=== PATIENT | male | born 1995 | race Caucasian/White ===

== ENCOUNTER 2016-04-19 23:31 | Emergency (ER) | payer OTHER ==
[~2016-04-19] VITALS: Wt 65.0 kg
[~2016-04-19 23:31] MED LIST: LORA10CA PO; MULT-552 PO; PSEU120T51 PO
--- NOTE | 2016-04-20 01:50 | RADRPT ---
PROCEDURE: CHEST - 1 VIEW CLINICAL INDICATION: 20-year-old male with chest pain. TECHNIQUE: A single frontal PA view of the chest was performed. The images were reviewed on a PAC S workstation. COMPARISON: Chest x-ray July 07, 2014. FINDINGS: The cardiomediastinal silhouette has a normal appearance. There is no evidence for an infiltrate. T he pulmonary vascularity is within normal limits. There is no evidence for pneumothorax or pneumomed iastinum. The osseous structures are intact. IMPRESSION: No evidence for active cardiopulmonary disease. .Philip Muller MD, Date Time Electronically viewed and signed by .Philip Muller MD, on 04/20/2016 01:50 .M/
--- NOTE | 2016-04-20 01:52 | ERD ---
ER Documentation Chief Complaint Date/Time DATE: 04/20/16 TIME: 01:47 Chief Complaint c/p with inhalation x's 30 minutes HPI This is a 20-year-old male who presents to the emergency department today complaining of left-sided chest pain that started earlier this evening. Patient states that he was eating when his phone rang and he went to answer the phone and he choked and spit his food out. Patient states that he drank water afterwards and started feeling some left-sided chest pain. States the pain is worse with deep inspiration. States he has not taken any medication for the pain. States he smokes cigarettes. Denies any fevers or chills. Denies any cough. ROS All systems reviewed and are negative except as per history of present illness. Medications Home Meds Active Scripts Famotidine* (Pepcid*) 20 Mg Tablet, 20 MG PO BID for 10 Days, TAB Prov:RADHA AVERY PA-C 04/20/16 Acetaminophen* (Tylophen*) 500 Mg Capsule, 1 CAP PO Q6H Y for PAIN AND OR ELEVATED TEMP, #30 CAP Prov:RADHA AVERY PA-C 04/20/16 Naproxen* (Naprosyn*) 500 Mg Tablet, 500 MG PO BID Y for PAIN AND/OR INFLAMMATION, #30 TAB Prov:RADHA AVERY PA-C 04/20/16 Pseudoephedrine Hcl (Sudafed 12 Hour) 120 Mg Tablet.sa, 120 MG PO BID, #6 Prov:FAHEEM MURPHY PA-C 09/29/15 Loratadine* (Claritin*) 10 Mg Capsule, 10 MG PO DAILY, #7 CAP Prov:FHAEEM MURPHY PA-C 09/29/15 Reported Medications Multivitamins* (Once Daily*) 1 Tab Tablet, 1 TAB PO DAILY, TAB 02/23/14 Allergies Allergies: Coded Allergies: No Known Drug Allergies (Verified Allergy, Mild, 07/06/14) PMhx/Soc Medical and Surgical Hx: pt denies Medical Hx, pt denies Surgical Hx History of Surgery: No Anesthesia Reaction: No Hx Neurological Disorder: No Hx Respiratory Disorders: No Hx Cardiac Disorders: No Hx Psychiatric Problems: No Hx Miscellaneous Medical Probl: No Hx Alcohol Use: No Hx Substance Use: Yes (METH, MARIJUANA) Hx Tobacco Use: No Smoking Status: Current some day smoker Physical Exam Vitals Vital Signs Date Time Temp Pulse Resp B/P Pulse Ox O2 Delivery O2 Flow Rate FiO2 04/19/16 23:36 98.6 102 18 124/74 98 Physical Exam Const: No acute distress Head: Atraumatic Eyes: Normal Conjunctiva ENT: Normal External Ears, Nose and Mouth. Neck: Full range of motion..~ No meningismus. Resp: Clear to auscultation bilaterally. No absent breath sounds. No wheezing. Tenderness palpation left side of chest wall. Cardio: Regular rate and rhythm, no murmurs Abd: Soft, non tender, non distended. Normal bowel sounds Skin: No petechiae or rashes Neur: Awake and alert Psych: Normal Mood and Affect Results 24 hrs Current Medications Medications (Trade) Dose Ordered Sig/Vandana Route PRN Reason Start Time Stop Time Status Last Admin Dose Admin Ibuprofen (Motrin) 800 mg ONCE ONCE PO 04/20/16 02:00 04/20/16 02:01 04/20/16 01:36 Famotidine (Pepcid) 20 mg ONCE ONCE PO 04/20/16 02:00 04/20/16 02:01 04/20/16 01:36 DIAGNOSTIC IMAGING REPORT Patient: CITLALLI MATHEWS : 1995 Age: 20 Sex: M MR #: [id number] DOS: 04/20/16 0000 Ordering MD: RADHA AVERY PA-C Location: [facility] Room/Bed: PROCEDURE: CHEST - 1 VIEW CLINICAL INDICATION: 20-year-old male with chest pain. TECHNIQUE: A single frontal PA view of the chest was performed. The images were reviewed on a PACS workstation. COMPARISON: Chest x-ray July 07, 2014. FINDINGS: The cardiomediastinal silhouette has a normal appearance. There is no evidence for an infiltrate. The pulmonary vascularity is within normal limits. There is no evidence for pneumothorax or pneumomediastinum. The osseous structures are intact. IMPRESSION: No evidence for active cardiopulmonary disease. .Philip Muller MD, Date Time Electronically viewed and signed by .Philip Muller MD, on 04/20/2016 01:50 .M/ CC: RADHA AVERY PA-C Procedures/[facility] This is a 20-year-old male who presents to the emergency department today complaining of left-sided chest pain that is worse with inhalation after swallowing some food earlier this evening. An EKG was obtained at intake. I did obtain a chest x-ray. EKG read and interpreted by Dr. Yarbrough rate [address] elevation. No QT prolongation. Normal sinus rhythm. Low suspicion for acute [place], PE, pericarditis. Chest x-ray read and interpreted by Dr. Yarbrough as negative. There is no evidence of pneumothorax, pleural effusion, opacification. Low suspicion for PE , pneumonia, abscess, pneumothorax. Patient is talkative in the exam room. His physical exam is benign. His oxygen saturation is 98%. He is afebrile. Patient initially declined pain medication but symptoms did not improve here so I did give the patient Motrin as well as Pepcid. Patient symptoms then improved. Patient symptoms at this time consistent with left-sided chest wall pain. Do not feel the patient requires further laboratory workup or imaging. Patient will be given a prescription for Naprosyn and Tylenol and Pepcid. Patient was instructed to stop smoking. At this time the patient is stable for discharge and outpatient management. Patient should follow up with their PCP in the next 1-2 days. They may return to the emergency department sooner for any persistent or worsening of symptoms. Patient understood and agreed with the plan. Discussed the patient with Dr. Yarbrough and he is in agreement with the plan. Departure Diagnosis: Primary Impression: Chest wall pain Condition: Fair RADHA AVERY PA-C Apr 20, 2016 01:52
[2016-04-20] MEDS ORDERED: NAPR-260 PO (01:57)
[2016-04-20] MEDS ORDERED: FAMO-18 PO (01:59)
[2016-04-20] MEDS ORDERED: ACET500C5 PO (01:59)
[2016-04-20] MEDS ORDERED: IBUPROFEN 800 MG TAB PO ONE (02:00)
[2016-04-20] MEDS ORDERED: FAMOTIDINE 20 MG TAB PO ONE (02:00)
[2016-04-20 02:17] VITALS: BP 118/62; PULSE 89; RESP 16; TEMP 98.6
== END 2016-04-20 02:17 | disposition home or self-care (01) ==
LOC: FTE 23:31
DX: R07.89 Other chest pain (principal); F17.210 Nicotine dependence, cigarettes, uncomplicated
CPT/HCPCS: 71010; 93005; Z7502; Z7610

== ENCOUNTER 2016-07-16 15:00 | Emergency (ER) | payer OTHER ==
[~2016-07-16] VITALS: Wt 75.0 kg
[~2016-07-16 15:00] MED LIST changes: +ACET500C5 PO; +FAMO-18 PO; +NAPR-260 PO
[2016-07-16] MEDS ORDERED: PRED20TA PO (15:12)
[2016-07-16] MEDS ORDERED: GUAI-637 PO (15:13)
[2016-07-16] MEDS ORDERED: IBUP-1542 PO (15:13)
[2016-07-16] MEDS ORDERED: CETI10CA PO (15:13)
--- NOTE | 2016-07-16 15:18 | ERD ---
ER Documentation Chief Complaint Date/Time DATE: 07/16/16 TIME: 15:14 Chief Complaint sore throat, fever, gonzalez, body aches, cough HPI Patient is a 21-year-old male who presents to the emergency department with numerous symptoms including a sore throat, fever, headache, generalized body aches and a cough. Patient states his symptoms are approximately 1 week ago. Patient states that his throat pain is moderate in nature. Patient denies any drooling, trismus or hyperextension of his neck. Patient reports a dry cough. Patient states that he had had tactile fevers at home. Patient denies taking any antipyretics. Patient states he is able to tolerate p.o. fluids. Patient denies any abdominal pain, nausea, vomiting, diarrhea. Patient states he is unsure if he received his flu vaccine this year. Patient denies any sick contacts. No recent travel. ROS All systems reviewed and are negative except as per history of present illness. Medications Home Meds Active Scripts Guaifenesin* (Robitussin*) 100 Mg/5 Ml Syrup, 100 MG PO Q6H Y for COUGH, #1 BOT Prov:CHRIST OWENS PA-C 07/16/16 Cetirizine Hcl* (Zyrtec*) 10 Mg Capsule, 10 MG PO DAILY, #20 TAB.CHEW Prov:CHRIST OWENS PA-C 07/16/16 Ibuprofen* (Motrin*) 600 Mg Tab, 600 MG PO Q6, #30 TAB Prov:CHRIST OWENS PA-C 07/16/16 Prednisone* (Prednisone*) 20 Mg Tab, 40 MG PO DAILY for 4 Days, TAB Prov:CHRIST OWENS PA-C 07/16/16 Famotidine* (Pepcid*) 20 Mg Tablet, 20 MG PO BID for 10 Days, TAB Prov:RADHA AVERY PA-C 04/20/16 Acetaminophen* (Tylophen*) 500 Mg Capsule, 1 CAP PO Q6H Y for PAIN AND OR ELEVATED TEMP, #30 CAP Prov:RADHA AVERY PA-C 04/20/16 Naproxen* (Naprosyn*) 500 Mg Tablet, 500 MG PO BID Y for PAIN AND/OR INFLAMMATION, #30 TAB Prov:RADAH AVERY PA-C 04/20/16 Pseudoephedrine Hcl (Sudafed 12 Hour) 120 Mg Tablet.sa, 120 MG PO BID, #6 Prov:FAHEEM MURPHY PA-C 09/29/15 Loratadine* (Claritin*) 10 Mg Capsule, 10 MG PO DAILY, #7 CAP Prov:FAHEEM MURPHY PA-C 09/29/15 Reported Medications Multivitamins* (Once Daily*) 1 Tab Tablet, 1 TAB PO DAILY, TAB 02/23/14 Allergies Allergies: Coded Allergies: No Known Drug Allergies (Verified Allergy, Mild, 07/06/14) PMhx/Soc History of Surgery: No Anesthesia Reaction: No Hx Neurological Disorder: No Hx Respiratory Disorders: No Hx Cardiac Disorders: No Hx Psychiatric Problems: No Hx Miscellaneous Medical Probl: No Hx Alcohol Use: Yes Hx Substance Use: Yes (METH, MARIJUANA) Hx Tobacco Use: Yes FmHx Family History: No diabetes Physical Exam Vitals Vital Signs Date Time Temp Pulse Resp B/P Pulse Ox O2 Delivery O2 Flow Rate FiO2 07/16/16 15:04 98.0 98 20 121/88 99 Physical Exam GENERAL: Well-developed, well-nourished male. Appears in no acute distress. Speaking in full sentences HEAD: Normocephalic, atraumatic. No deformities or ecchymosis. EYE: Pupils equal, round, and reactive to light. EOMs intact. No conjunctival erythema. No eye discharge. ENT: External ear without any masses or tenderness. TM visualized bilaterally, non-erythematous, non-bulging. Nasal mucosa pink with no discharge. Oropharynx is erythematous. 1+ bilateral tonsillar swelling noted. No exudates noted bilaterally. No asymmetry of tonsils. No uvula deviation. No kissing tonsils. Nontender to palpation of bilateral mastoid processes NECK: Supple. No meningismus. Normal ROM of the neck. No hyperextension of the neck. No cervical lymphadenopathy noted bilaterally. LUNG: Clear to auscultation bilaterally. No rhonchi, wheezing, rales or coarse breath sounds. HEART: Regular rate and rhythm. No murmurs, rubs or gallops. EXTREMITES: Equal pulses bilaterally. No peripheral clubbing, cyanosis or edema. No unilateral leg swelling. NEUROLOGIC: Alert and oriented to person, place and time. Moving all four extremities. 5/5 strength in all extremities. Normal speech. Steady gait. SKIN: Normal color. Warm and dry. No rashes or lesions. Procedures/MDM MEDICAL DECISION MAKING: This is a 21-year-old male who presents with numerous symptoms including sore throat, cough, body aches, headache and intermittent fevers 1 week. She denies taking any medication. Vital signs were reviewed. Patient was afebrile. Patient was not hypoxic. ENT exam revealed bilateral tonsillar swelling however no exudates were noted. Lung exam was normal. Given these findings, the patient's presentation is most consistent with viral URI. I have a much lower clinical concern for bacterial infections including pneumonia, meningitis , sinusitis, otitis externa, acute otitis media, strep pharyngitis, epiglottitis or peritonsillar abscess. PRESCRIPTIONS: Ibuprofen, Zyrtec, Robitussin, prednisone DISCHARGE: At this time, patient is stable for discharge and outpatient management. Supportive therapies such as OTC throat lozenges, salt water gurgles, popsicles and jello discussed. I have instructed the patient to follow-up with his/her primary care physician in 1-2 days. I have instructed the patient to promptly return to the ER for any new or worsening symptoms including increased pain, swelling, fever, nausea, vomiting, weakness or difficulty breathing. The patient and/or family expressed understanding of and agreement with this plan. All questions were answered. Home care instructions were provided. Departure Diagnosis: Primary Impression: Upper respiratory infection Additional Impression: Viral pharyngitis Condition: Stable Patient Instructions: Pharyngitis, Viral Referrals: [facility] YOU HAVE RECEIVED A MEDICAL SCREENING EXAM AND THE RESULTS INDICATE THAT YOU DO NOT HAVE A CONDITION THAT REQUIRES URGENT TREATMENT IN THE EMERGENCY DEPARTMENT. FURTHER EVALUATION AND TREATMENT OF YOUR CONDITION CAN WAIT UNTIL YOU ARE SEEN IN YOUR DOCTORS OFFICE WITHIN THE NEXT 1-2 DAYS. IT IS YOUR RESPONSIBILITY TO MAKE AN APPOINTMENT FOR [facility]. IF YOU HAVE A PRIMARY DOCTOR --you should call your primary doctor and schedule an appointment IF YOU DO NOT HAVE A PRIMARY DOCTOR YOU CAN CALL OUR PHYSICIAN REFERRAL HOTLINE AT IF YOU CAN NOT AFFORD TO SEE A PHYSICIAN YOU CAN CHOSE FROM THE FOLLOWING [facility] [address] [facility]. [facility] [address] [facility] [address] [email or web address] [address] [facility]. [facility] [address] [facility]. [facility] [address] [facility]. [facility]. [address] [facility]. [facility] YOU HAVE RECEIVED A MEDICAL SCREENING EXAM AND THE RESULTS INDICATE THAT YOU DO NOT HAVE A CONDITION THAT REQUIRES URGENT TREATMENT IN THE EMERGENCY DEPARTMENT. FURTHER EVALUATION AND TREATMENT OF YOUR CONDITION CAN WAIT UNTIL YOU ARE SEEN IN YOUR DOCTORS OFFICE WITHIN THE NEXT 1-2 DAYS. IT IS YOUR RESPONSIBILITY TO MAKE AN APPOINTMENT FOR [facility]. IF YOU HAVE A PRIMARY DOCTOR --you should call your primary doctor and schedule and appointment IF YOU DO NOT HAVE A PRIMARY DOCTOR YOU CAN CALL OUR PHYSICIAN REFERRAL HOTLINE AT . IF YOU CAN NOT AFFORD TO SEE A PHYSICIAN YOU CAN CHOSE FROM THE FOLLOWING [facility]: [facility] [address] [place] [address] [facility] [address] [place] [address] [facility] [address] [place] [address] Additional Instructions: Call your primary care doctor TOMORROW for an appointment during the next 1-2 days.See the doctor sooner or return here if your condition worsens before your appointment time. CHRIST OWENS PA-C Jul 16, 2016 15:17
== END 2016-07-17 07:35 | disposition home or self-care (01) ==
LOC: FTE 15:00 → E/R 07-17 07:35
DX: J06.9 Acute upper respiratory infection, unspecified (principal); J02.8 Acute pharyngitis due to other specified organisms; B97.89 Other viral agents as the cause of diseases classified elsewhere; F17.210 Nicotine dependence, cigarettes, uncomplicated
CPT/HCPCS: 99283

== ENCOUNTER 2016-08-28 16:06 | Emergency (ER) | payer OTHER ==
[~2016-08-28] VITALS: Wt 57.5 kg
[~2016-08-28 16:06] MED LIST changes: +CETI10CA PO; +GUAI-637 PO; +IBUP-1542 PO; +PRED20TA PO
--- NOTE | 2016-08-28 16:21 | ERD ---
ER Documentation Chief Complaint Date/Time DATE: 08/28/16 TIME: 16:20 Chief Complaint COUGH/CONGESTIONS/CHEST WALL PAIN/BACK PAIN X1WEEK WORSE IN AM HPI 21-year-old male otherwise healthy comes emergency department cough 1 week as well as sore throat and runny nose, and started to develop chest pain over the last day. Patient states that it is a slightly productive cough with green sputum, reports worsening pain after work today as he was lifting some boxes. It is in the center of his chest, and states that he goes to his back and is worse every time he takes a deep breath in or out. He has not had any fevers, chills, shortness of breath or hemoptysis. ROS All systems reviewed and are negative except as per history of present illness. Medications Home Meds Active Scripts Ibuprofen* (Motrin*) 600 Mg Tab, 600 MG PO Q6, #30 TAB Prov:FAHEEM MURPHY PA-C 08/28/16 Dextromethorphan Hb-Promethazine Hcl (Promethazine DM Syrup) 473 Ml Syrup, 5 ML PO Q6H Y for COUGH, #4 OZ Prov:FAHEEM MURPHY PA-C 08/28/16 Amoxicillin/Potassium Clav (Amox-Clav 875-125 mg Tablet) 875-125 mg Tab, 1 TAB PO BID for 7 Days, #14 TAB Prov:FAHEEM MURPHY PA-C 08/28/16 Guaifenesin* (Robitussin*) 100 Mg/5 Ml Syrup, 100 MG PO Q6H Y for COUGH, #1 BOT Prov:CHRIST OWENS PA-C 07/16/16 Cetirizine Hcl* (Zyrtec*) 10 Mg Capsule, 10 MG PO DAILY, #20 TAB.CHEW Prov:CHRIST OWENS PA-C 07/16/16 Ibuprofen* (Motrin*) 600 Mg Tab, 600 MG PO Q6, #30 TAB Prov:CHRIST OWENS PA-C 07/16/16 Prednisone* (Prednisone*) 20 Mg Tab, 40 MG PO DAILY for 4 Days, TAB Prov:CHRIST OWENS PA-C 07/16/16 Famotidine* (Pepcid*) 20 Mg Tablet, 20 MG PO BID for 10 Days, TAB Prov:RADHA AVERY PA-C 04/20/16 Acetaminophen* (Tylophen*) 500 Mg Capsule, 1 CAP PO Q6H Y for PAIN AND OR ELEVATED TEMP, #30 CAP Prov:RADHA AVERY PA-C 04/20/16 Naproxen* (Naprosyn*) 500 Mg Tablet, 500 MG PO BID Y for PAIN AND/OR INFLAMMATION, #30 TAB Prov:RADHA AVERY PA-C 04/20/16 Pseudoephedrine Hcl (Sudafed 12 Hour) 120 Mg Tablet.sa, 120 MG PO BID, #6 Prov:FAHEEM MURPHY PA-C 09/29/15 Loratadine* (Claritin*) 10 Mg Capsule, 10 MG PO DAILY, #7 CAP Prov:FAHEEM MURPHY PA-C 09/29/15 Reported Medications Multivitamins* (Once Daily*) 1 Tab Tablet, 1 TAB PO DAILY, TAB 02/23/14 Allergies Allergies: Coded Allergies: No Known Drug Allergies (Verified Allergy, Mild, 07/06/14) PMhx/Soc History of Surgery: No Anesthesia Reaction: No Hx Neurological Disorder: No Hx Respiratory Disorders: No Hx Cardiac Disorders: No Hx Psychiatric Problems: No Hx Miscellaneous Medical Probl: No Hx Alcohol Use: Yes Hx Substance Use: Yes (METH, MARIJUANA) Hx Tobacco Use: Yes Physical Exam Vitals Vital Signs Date Time Temp Pulse Resp B/P Pulse Ox O2 Delivery O2 Flow Rate FiO2 08/28/16 16:07 98.8 69 22 133/83 99 Physical Exam General: Well-developed, well-nourished. The patient appears in no acute distress. HEENT: Head is normocephalic, atraumatic. No scleral icterus. Oropharynx is clear. Neck: Supple. Nontender. Lungs: Clear to auscultation. Normal air movement. Heart: Regular rate and rhythm. S1 and S2 are normal. No murmurs, gallops, or rubs. Abdomen: Nondistended. Extremities: No clubbing or cyanosis. Moving extremities x 4. No weakness. Neurologic: Alert and oriented 3. No focal deficits. Normal speech and gait. Skin: Normal turgor. No rash or lesions. Results 24 hrs PROCEDURE: Chest Radiograph. CLINICAL INDICATION: Cough. Chest pain. TECHNIQUE: Single frontal chest radiograph. COMPARISON: Chest radiograph 04/20/2016 FINDINGS: The cardiomediastinal silhouette is within normal limits. No infiltrate or effusion is seen. The bones are intact. IMPRESSION: 1. Unremarkable chest radiograph. RPTAT: KK .Quinn Milian MD, MD Date Time Electronically viewed and signed by .Quinn Milian MD, MD on 2016 16:43 .B/ CC: FAHEEM MURPHY PA-C Procedures/MDM The patient is a 21-year-old male who comes in with an acute upper respiratory infection, versus acute bronchitis. Patient reports chest pain, and a productive cough, given his history of persistent cough for approximately a week and pain patient will be treated for possible bronchitis. The patient has a differential diagnosis of a viral upper respiratory infection, bacterial upper respiratory infection, bronchitis, pneumonia, pharyngitis, laryngitis, epiglottitis, croup, pneumonia. Patient has a normal pulmonary examination, clear breath sounds, normal pulse oximetry, with no corrective measures needed at this time. Fluids, rest, antipyretics were encouraged. Departure Diagnosis: Primary Impression: Cough Condition: Good FAHEEM MURPHY PA-C August 28, 2016 16:21
--- NOTE | 2016-08-28 16:43 | RADRPT ---
PROCEDURE: Chest Radiograph. CLINICAL INDICATION: Cough. Chest pain. TECHNIQUE: Single frontal chest radiograph. COMPARISON: Chest radiograph 04/20/2016 FINDINGS: The cardiomediastinal silhouette is within normal limits. No infiltrate or effusion is seen. Th e bones are intact. IMPRESSION: 1. Unremarkable chest radiograph. RPTAT: KK .Quinn Milian MD, MD Date Time Electronically viewed and signed by .Quinn Milian MD, on 08/28/2016 16:43 .B/
[2016-08-28] MEDS ORDERED: AMOX1TAB10 PO (16:58)
[2016-08-28] MEDS ORDERED: IBUP-1542 PO (16:58)
[2016-08-28] MEDS ORDERED: D-ME473S18 PO (16:58)
[2016-08-28] MEDS ORDERED: BENZ100C70 PO (18:42)
== END 2016-08-28 18:15 | disposition home or self-care (01) ==
LOC: FTE 16:06
DX: R05 Cough (principal); Z87.891 Personal history of nicotine dependence
CPT/HCPCS: 71010

== ENCOUNTER 2017-03-19 20:07 | Emergency (ER) | payer OTHER ==
[~2017-03-19] VITALS: Ht 167.6 cm; Wt 58.2 kg
[~2017-03-19 20:07] MED LIST changes: +AMOX1TAB10 PO; +BENZ100C70 PO; +D-ME473S18 PO; -FAMO-18 PO; +FAMO-96 PO
[2017-03-19 20:10] VITALS: Ht 167.6 cm; Wt 58.2 kg
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
[2017-03-20] MEDS ORDERED: ACET500C5 PO (00:18)
[2017-03-20] MEDS ORDERED: CEPH500C PO (00:18)
[2017-03-20] MEDS ORDERED: IBUP-1542 PO (00:19)
[2017-03-20] MEDS ORDERED: DIPHTH/TET/ACEL PERTUSS (ADULT) 0.5 ML VIAL IM* ONE (00:30)
[2017-03-20 00:56] VITALS: BP 125/59; PULSE 75; RESP 20; TEMP 97.7
== END 2017-03-20 00:57 | disposition home or self-care (01) ==
LOC: FTE 20:07
DX: S61.210A Laceration without foreign body of right index finger without damage to nail, initial encounter (principal); F17.210 Nicotine dependence, cigarettes, uncomplicated; W22.8XXA Striking against or struck by other objects, initial encounter; Y92.9 Unspecified place or not applicable; Z23 Encounter for immunization
CPT/HCPCS: 90715; Z7502

== ENCOUNTER 2018-02-01 07:59 | Emergency (ER) | END 2018-02-01 09:10 | disposition home or self-care (01) ==

== ENCOUNTER 2018-04-28 12:18 | Emergency (ER) | payer SELFPAY ==
[~2018-04-28] VITALS: Wt 94.4 kg
[2018-04-28 12:23] VITALS: BP 135/66; PULSE 65; RESP 18
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
[2018-04-28] MEDS ORDERED: HYDROCODONE/APAP (5/325) TAB PO ONE (15:30)
[2018-04-28] MEDS ORDERED: IBUP-1542 PO (15:48)
== END 2018-04-28 16:26 | disposition home or self-care (01) ==
LOC: FTE 12:18
DX: S69.92XA Unspecified injury of left wrist, hand and finger(s), initial encounter (principal); V18.0XXA Pedal cycle driver injured in noncollision transport accident in nontraffic accident, initial encounter

== ENCOUNTER 2018-10-12 16:08 | Emergency (ER) | payer MEDICAID, OTHER ==
[~2018-10-12] VITALS: Wt 60.0 kg
[~2018-10-12 16:08] MED LIST changes: -ACET500C5 PO; -AMOX1TAB10 PO; -BENZ100C70 PO; -CETI10CA PO; -D-ME473S18 PO; -FAMO-96 PO; -GUAI-637 PO; -LORA10CA PO; -MULT-552 PO; -NAPR-260 PO; -PRED20TA PO; -PSEU120T51 PO
[2018-10-12 16:10] VITALS: BP 138/64; PULSE 82; RESP 18
[2018-10-12] MEDS ORDERED: BENZ200C68 PO (16:51)
[2018-10-12] MEDS ORDERED: NAPR-985 PO (16:51)
--- NOTE | 2018-10-12 16:53 | ERD ---
ER Documentation Chief Complaint Chief Complaint cough,body aches x 1 week HPI 23-year-old male with no significant past medical history presenting to the emergency department complaining of full body aches and cough which began 2 days ago. He also reports tactile fevers. Symptoms worsened yesterday. Symptoms ar e moderate in severity and intermittent. He tried [id number] medication with some relief. He denies any current nausea, vomiting, diarrhea, abdominal pain, leg pain, severe headache, or other symptoms at this time. ROS All systems reviewed and are negative except as per history of present illness. Medications Home Meds Active Scripts Naproxen* (Naprosyn*) 500 Mg Tablet, 500 MG PO BID PRN for PAIN AND/OR INFLAMMATION, #30 TAB Prov:FARIBA OTERO PA-C 10/12/18 Benzonatate* (Benzonatate*) 200 Mg Capsule, 200 MG PO TID PRN for COUGH, #15 CAP Prov:FARIBA OTERO PA-C 10/12/18 Ibuprofen* (Motrin*) 600 Mg Tab, 600 MG PO Q6, #30 TAB Prov:CHRIST OWENS PA-C 04/28/18 Allergies Allergies: Coded Allergies: No Known Drug Allergies (Verified Allergy, Mild, 07/06/14) PMhx/Soc Medical and Surgical Hx: pt denies Medical Hx History of Surgery: No Anesthesia Reaction: No Hx Neurological Disorder: No Hx Respiratory Disorders: No Hx Cardiac Disorders: No Hx Psychiatric Problems: No Hx Miscellaneous Medical Probl: No Hx Alcohol Use: No Hx Substance Use: No Hx Tobacco Use: No Smoking Status: Never smoker FmHx Family History: No diabetes Physical Exam Vitals Vital Signs Date Temp Pulse Resp B/P (MAP) Pulse Ox O2 O2 Flow FiO2 Time Delivery Rate 10/12/18 98.1 82 18 138/64 99 16:10 (88) Physical Exam Const: No acute distress Head: Atraumatic Eyes: Normal Conjunctiva ENT: Normal External Ears, Nose and Mouth. Neck: Full range of motion. No meningismus. Resp: Clear to auscultation bilaterally Cardio: Regular rate and rhythm, no murmurs Skin: No petechiae or rashes Ext: No cyanosis, or edema Back Exam: Skin: No bruising or rash Compartments: Soft Motor: Normal flexion and extension of bilateral hip/knee/ankle/foot Sensation: Intact to light touch throughout Bones: No midline TTP Neur: Awake and alert Psych: Normal Mood and Affect Procedures/MDM 23-year-old male presenting to the emergency department complaining of cough, full body aches, and fevers. Patient is nontoxic, afebrile, well-appearing, with stable vital signs. The patient's clinical presentation is very consistent with an acute viral syndrome. The patient does not exhibit any clinical signs or symptoms concerning for serious bacterial infection or systemic illness. Based on history and clinical exam findings the patient does not appear to have evidence of pneumonia, strep pharyngitis, urinary tract infection, bacteremia, sepsis, or meningitis. For these reasons I do not believe it is necessary to obtain laboratory testing or diagnostic imaging. I believe it would be appropriate for symptom control, and close outpatient primary care follow-up. Based on patient's history of present illness and physical examination the decision was made to discharge. There is no evidence of life threatening injuries or illnesses at this time. On re-examination, patient resting in no distress, stable vital signs, reports feeling better and safe for discharge with outpatient follow up with PMD in 1-2 days. Patient given return precautions. Departure Diagnosis: Primary Impression: Influenza-like symptoms Condition: Fair Patient Instructions: Influenza (Adult) Additional Instructions: Call your primary care doctor TOMORROW for an appointment during the next 1-2 days.See the doctor sooner or return here if your condition worsens before your appointment time. FARIBA OTERO PA-C Oct 12, 2018 16:53
== END 2018-10-12 17:15 | disposition home or self-care (01) ==
LOC: FTE 16:08
DX: R05 Cough (principal); R50.9 Fever, unspecified; R52 Pain, unspecified
CPT/HCPCS: 99283